=== PATIENT | male | born 2000 | race Caucasian/White ===

== ENCOUNTER 2021-05-05 03:40 | Emergency (ER) | payer OTHER, MEDICAID ==
[~2021-05-05] VITALS: Ht 167.6 cm; Wt 75.0 kg
[2021-05-05 03:43] VITALS: BP 134/96
[2021-05-05] MEDS ORDERED: ONDA4TAB5 MT (04:40)
[2021-05-05] MEDS ORDERED: PROT20 MT (04:40)
== END 2021-05-05 05:49 | disposition home or self-care (01) ==
LOC: ER 04:14
DX: K21.9 Gastro-esophageal reflux disease without esophagitis (principal)
CPT/HCPCS: 71045; 99283